=== PATIENT | female | born 1950 | race Caucasian/White ===

== ENCOUNTER → 2016-08-07 | Outpatient (CLI) | payer MEDICARE, OTHER ==
[~2016-08-07] MED LIST: NEURONTIN600 MG PO
== END ==
LOC: MRI 07-27 13:00 → MAMO 07-27 14:00 → MRI 12:50
DX: Z12.31 Encounter for screening mammogram for malignant neoplasm of breast (principal); R26.0 Ataxic gait; G25.2 Other specified forms of tremor
CPT/HCPCS: 70551; G0202

== ENCOUNTER → 2016-08-18 | Outpatient (CLI) | payer MEDICARE, OTHER | LOC: CT 14:30 | DX: F17.210 Nicotine dependence, cigarettes, uncomplicated (principal); R91.8 Other nonspecific abnormal finding of lung field | CPT/HCPCS: G0297 ==

== ENCOUNTER → 2020-10-18 | Outpatient (CLI) | payer MEDICARE, OTHER ==
[~2020-10-18] MED LIST changes: +ACID REDUCER150 MG PO; +ASPIRIN CHEWABL81 MG PO; +ESCITALOPRAM OX20 MG PO; +GLUCOPHAGE 500500 MG GT; +JARDIANCE25 MG PO; +LIPITOR TAB 2020 MG PO; +LYRICA100 MG PO; +METOPROLOL SUCC25 MG PO; +OZEMPIC1 MG/0.75 SQ; +STIOLTO RESPIMAT; +TRAZODONE HCL150 MG PO
== END ==
LOC: KOH-I 10-02 11:00
DX: F17.210 Nicotine dependence, cigarettes, uncomplicated (principal)
CPT/HCPCS: 71271

== ENCOUNTER → 2020-10-31 | Outpatient (CLI) | payer MEDICARE, OTHER | LOC: RAD 12:53 | DX: S29.9XXA Unspecified injury of thorax, initial encounter (principal); W19.XXXA Unspecified fall, initial encounter | CPT/HCPCS: 71101 ==

== ENCOUNTER → 2020-11-28 | Outpatient (CLI) | payer MEDICARE, OTHER | LOC: HEART CORB 08:30 | DX: I25.10 Atherosclerotic heart disease of native coronary artery without angina pectoris (principal); R07.2 Precordial pain; R94.39 Abnormal result of other cardiovascular function study | CPT/HCPCS: 78452; 93017; A9502 ==